=== PATIENT | male | born 1985 | race Caucasian/White ===

== ENCOUNTER 2018-05-24 11:09 | Emergency (ER) | payer OTHER, SELFPAY ==
[2018-05-24 11:10] VITALS: BP 105/81; PULSE 87; RESP 16; TEMP 36.6; O2SAT 95; BMI 24.3
--- NOTE | 2018-05-24 11:37 | ED.VISSUMM ---
- ER Visit Summary Date of Service: 05/24/18 Chief Complaint: [] Right lower dental swelling for a few days History of Present Illness: The patient is a 32 M [] a few days of right lower dental swelling, no fever no cough no chest pain he indicates he can see a dentist has not seen one recently no other complaints Physical Examination: [] Blood pressures about 160/80 afebrile General, no distress resting comfortably HEENT is generally unremarkable , is some minimal swelling over the right lower mandible region he does have prior history of extraction, he has fillings in these lower right teeth is no signs of airway compromise the floor the mouth and tongue are unremarkable speech is normal his neck is supple for range of motion just the focal area of swelling The neck is supple no adenopathy Cardiovascular, regular rate and rhythm Lungs, clear bilateral Abdomen, soft nontender Extremities, no clubbing cyanosis or edema Neurologic, awake alert answering questions appropriately moving all 4 extremities Test Results: [] Emergency Department Course and Treatment: [] he looks well he will be started on Pen-Vee K Naprosyn and he does have a dentist he can follow-up with, he does understand he must see a dentist as his condition can cause occult multiple complications that can be life-threatening Treatment Plan: [] Disposition: [] Home stable Impression: [] Right lower mandibular swelling suspected dental infection This note was generated with [employer] (MM) dictation software. It may contain incorrect words, spelling, and punctuation that were not noted in review of the chart prior to signing ED Disposition - Plan for ED Patient: Chief Complaint: Dental Referrals: NOT,DEFINED [Primary Care Provider] -
--- NOTE | 2018-05-24 11:46 | ED.DEP ---
ED Disposition - Plan for ED Patient: Chief Complaint: Dental Instructions: ED Abscess Dental Prescriptions: Naproxen [Naprosyn] 500 mg PO BID PRN #20 tab Penicillin V Potassium 500 mg PO 4X/DAY #40 tab Referrals: NOT,DEFINED [Primary Care Provider] - Additional Instructions: Please follow-up with your dentist in a day or 2
--- NOTE | 2018-05-24 12:25 | ED.RN ---
pt had large amount of blood and pus come from area of swelling. spit into sink. discharge instructions given. reports pain is improving.
== END 2018-05-24 12:26 | disposition home or self-care (01) ==
LOC: ED 12:22
PROVIDERS: Emergency Provider Emergency Medicine
DX: K04.7 Periapical abscess without sinus (principal)
CPT/HCPCS: 99282